=== PATIENT | male | born 1965 | race African-American/Black ===

== ENCOUNTER 2021-10-01 13:07 | Emergency (ER) | payer OTHER ==
[2021-10-01 13:44] VITALS: BMI 25.4
[2021-10-01] MEDS ORDERED: ACETAMINOPHEN 1000 MG/100 ML BAG IVPB ONE (14:11)
[2021-10-01] MEDS ORDERED: SODIUM CHLORIDE 0.9% 500 ML INFUS.BAG IV ONE (14:11)
[2021-10-01] MEDS ORDERED: ACETAMINOPHEN INJECTION 100 ML IVPB ONE (14:14)
[2021-10-01 15:20] LABS: HEMOGLOBIN 15.3 G/dL (11.7-16.9); MEAN CELL VOLUME 82.3 fl (80-96); PLATELET COUNT 261.3 10^3/uL (134-434); RBC 5.47 10^6/uL (4.00-5.60); RDW 15.8 % (11.9-15.9); WHITE BLOOD COUNT 8.7 10^3/uL (4.0-10.8)
[2021-10-01 15:21] LABS: MEAN PLT VOLUME 9.1 fl (7.5-11.1)
[2021-10-01 15:47] LABS: ALBUMIN 4.1 g/dl (3.4-5.0); BILIRUBIN,TOTAL 0.9 mg/dl (0.2-1); CALCIUM 9.8 mg/dl (8.5-10); CREATININE 1.1 mg/dl (0.55-1.3); TOT PROT 7.2 g/dl (6.4-8.2)
[2021-10-01 16:24] LABS: PLATELET ESTIMATE ADEQUATE
[2021-10-01 17:05] VITALS: BP 113/67; PULSE 66; TEMP 98
== END 2021-10-01 17:05 | disposition home or self-care (01) ==
LOC: FER 13:07
PROC: 3E0333Z Introduction of Anti-inflammatory into Peripheral Vein, Percutaneous Approach (ICD-10-PCS; principal; 2021-10-01)
DX: R10.9 Unspecified abdominal pain (principal)
CPT/HCPCS: 36415; 74176-TC; 80053; 81003; 81015; 85025; 87086; 96374; 99284-25